=== PATIENT | male | born 1990 | race American Indian/Alaskan Native ===

== ENCOUNTER 2019-09-16 01:31 | Emergency (ER) | payer MEDICAID ==
[2019-09-16 02:02] VITALS: BP 128/79
--- NOTE | 2019-09-16 02:31 | Emergency Department Report ---
ED General Adult HPI - General Chief complaint: Dental/Oral Stated complaint: LIP PAIN Source: patient Mode of arrival: Ambulatory Limitations: No Limitations - History of Present Illness Initial comments: Patient is a 29-year-old -[place] male with no past medical history who presents to the ED with complaint of acute onset persistent painful ulcerated lower lip vesicular lesions for the last 1 week with swelling. Patient states that he try to apply peroxide on it and it got worse. Patient states that the lesions are spreading currently on his lower leg. Patient denies dizziness, fever, chills, nausea, vomiting, sore throat, dysphagia, cough, nasal and sinus congestion, chest pain, abdominal pain, headache or dizziness MD Complaint: lower lip ulcerated lesions with pain -: Sudden, week(s) (1) Location: mouth (lower lip) Radiation: non-radiation Severity scale (0 -10): 4 Quality: burning, aching, sharp Consistency: constant Improves with: none Worsens with: none Associated Symptoms: denies other symptoms, rash (ulcerated vesicular lesions on lower lip with swelling and pain). denies: confusion, chest pain, cough, diaphoresis, fever/chills, headaches, loss of appetite, malaise, nausea/vomiting, seizure Treatments Prior to Arrival: none - Related Data Previous Rx's Medication Instructions Recorded Last Taken Type Acyclovir 400 mg PO Q8H #30 tablet 09/16/19 Unknown Rx Acyclovir [Acyclovir Ointment] 1 applic TP Q6H #1 tube 09/16/19 Unknown Rx Ibuprofen [Motrin 600 MG tab] 600 mg PO Q8H PRN #24 tablet 09/16/19 Unknown Rx cephALEXin [Keflex] 500 mg PO Q8HR #30 cap 09/16/19 Unknown Rx Allergies Allergy/AdvReac Type Severity Reaction Status Date / Time iodine Allergy Swelling Verified 04/23/16 18:51 ED Review of Systems ROS: Stated complaint: LIP PAIN Other details as noted in HPI Constitutional: denies: chills, fever Eyes: denies: eye pain, eye discharge, vision change ENT: other (Lower lip ulcerated lesions). denies: ear pain, throat pain Respiratory: denies: cough, shortness of breath, wheezing Cardiovascular: denies: chest pain, palpitations Endocrine: no symptoms reported Gastrointestinal: denies: abdominal pain, nausea, diarrhea Genitourinary: denies: urgency, dysuria Musculoskeletal: denies: back pain, joint swelling, arthralgia Skin: lesions (lower lip ulcerated lesions with swelling). denies: rash Neurological: denies: headache, weakness, paresthesias Psychiatric: denies: anxiety, depression Hematological/Lymphatic: denies: easy bleeding, easy bruising ED Past Medical Hx - Past Medical History Previous Medical History?: No - Surgical History Past Surgical History?: No - Social History Smoking Status: Current Every Day Smoker Substance Use Type: Marijuana - Medications Home Medications: Home Medications Medication Instructions Recorded Confirmed Last Taken Type Acyclovir 400 mg PO Q8H #30 tablet 09/16/19 Unknown Rx Acyclovir [Acyclovir Ointment] 1 applic TP Q6H #1 tube 09/16/19 Unknown Rx Ibuprofen [Motrin 600 MG tab] 600 mg PO Q8H PRN #24 tablet 09/16/19 Unknown Rx cephALEXin [Keflex] 500 mg PO Q8HR #30 cap 09/16/19 Unknown Rx ED Physical Exam - General Limitations: No Limitations General appearance: alert, in no apparent distress - Head Head exam: Present: atraumatic, normocephalic, normal inspection - Eye Eye exam: Present: normal appearance, PERRL, EOMI Pupils: Present: normal accommodation - ENT ENT exam: Present: mucous membranes moist, other (Ulcerated tender vesicular maculopapular lesions on lower lips) - Neck Neck exam: Present: normal inspection, full ROM. Absent: tenderness - Respiratory Respiratory exam: Present: normal lung sounds bilaterally. Absent: respiratory distress, wheezes, rales, rhonchi, chest wall tenderness, decreased breath sounds, prolonged expiratory - Cardiovascular Cardiovascular Exam: Present: regular rate, normal rhythm, normal heart sounds. Absent: systolic murmur, diastolic murmur, rubs, gallop - GI/Abdominal GI/Abdominal exam: Present: soft, normal bowel sounds. Absent: tenderness, guarding, rebound, hyperactive bowel sounds, hypoactive bowel sounds, organomegaly - Extremities Exam Extremities exam: Present: normal inspection, full ROM, normal capillary refill - Back Exam Back exam: Present: normal inspection, full ROM. Absent: tenderness, CVA tenderness (R), CVA tenderness (L), muscle spasm, paraspinal tenderness, rash noted - Neurological Exam Neurological exam: Present: alert, oriented X3, CN II-XII intact, normal gait, reflexes normal - Psychiatric Psychiatric exam: Present: normal affect, normal mood - Skin Skin exam: Present: warm, dry, intact, normal color, rash (Ulcerated vesicular erythematous tender lesions on lower lip), erythema, vesicles ED Course Vital Signs 09/16/19 09/16/19 01:34 02:49 Temperature 98.6 F 98 F Pulse Rate 118 H 84 Respiratory 20 16 Rate Blood Pressure 128/79 O2 Sat by Pulse 98 100 Oximetry ED Medical Decision Making - Medical Decision Making This is a 29-year-old male who presented to the ED with painful swollen erythematous maculopapular vesicular lesion in the lower lip for 1 week. In the ED, patient is alert and oriented x3 and is not in distress but tachycardic in triage. Patient was treated for pain in the ED and discharged home on medications including antiviral and antibiotics as well as pain medication. Patient was advised to follow-up with his primary care physician in 7 to 10 days for reevaluation or return to the ED immediately if symptoms get worse. - Differential Diagnosis Oral herpes; Lower lip cellulitis; Folliculitis Critical care attestation.: If time is entered above; I have spent that time in minutes in the direct care of this critically ill patient, excluding procedure time. ED Disposition Clinical Impression: Primary herpes simplex infection of oral region, Cellulitis of skin of lip Disposition: DC-01 TO HOME OR SELFCARE Is pt being admited?: No Does the pt Need Aspirin: No Condition: Stable Instructions: Cellulitis (ED), Oral Herpes Simplex Virus Infections (ED) Additional Instructions: Take medication with food, drink plenty of fluids and follow-up with your primary care physician in 7 to 10 days for reevaluation. Avoid alcohol consumption while taking these medications. Return to the ED immediately if symptoms get worse. Prescriptions: Acyclovir 400 mg PO Q8H #30 tablet Acyclovir [Acyclovir Ointment] 1 applic TP Q6H #1 tube cephALEXin [Keflex] 500 mg PO Q8HR #30 cap Ibuprofen [Motrin 600 MG tab] 600 mg PO Q8H PRN #24 tablet PRN Reason: Pain Referrals: [facility] [Provider Group] - 7-10 days Time of Disposition: 02:32 Print Language: TAIWANESE
== END 2019-09-16 02:50 | disposition home or self-care (01) ==
LOC: ED 01:31
DX: B00.1 Herpesviral vesicular dermatitis (principal); K13.0 Diseases of lips; F17.200 Nicotine dependence, unspecified, uncomplicated; F12.10 Cannabis abuse, uncomplicated
CPT/HCPCS: 99282

== ENCOUNTER 2019-10-07 05:21 | Emergency (ER) | payer MEDICAID ==
[2019-10-07 05:27] VITALS: BP 140/89
--- NOTE | 2019-10-07 05:50 | Emergency Department Report ---
Chief Complaint: Wound/Laceration Stated Complaint: LESION ON BOTTOM LIP Time Seen by Provider: 10/07/19 05:48 - HPI History of Present Illness: Patient is a 29-year-old male who presents emergency room with complaints of a shallow ulceration to the lower lip that began a month ago. He states initially it started as a vesicle and he popped it which then created an ulceration to form. Patient was evaluated in the emergency department on 09/16/2019 and given prescription for acyclovir, ibuprofen, Keflex. Patient states that he took all of the medications. He denies any other symptoms. He did not follow-up with a primary care doctor or the health department. He states he has discomfort to the lower lip. VSS On exam: 2 cm shallow ulceration present to the lower lip, no drainage, no necrosis, no skin denuding, no blistering If the cause was herpes, the acyclovir should have cleared up the lower lip Patient needs to have a full STD panel performed by the health department or another clinic Patient is presenting with nonmedical emergency at this time Medical screening examination performed and there is no threat to life or limb at this time - Exam Vital Signs: Vital Signs 10/07/19 05:25 Temperature 98.4 F Pulse Rate 74 Respiratory 18 Rate Blood Pressure 140/89 O2 Sat by Pulse 100 Oximetry MSE screening note: Focused history and physical exam performed ED Disposition for MSE Clinical Impression: Lip ulceration Disposition: - MED SCREENING EXAM-LEFT Is pt being admited?: No Does the pt Need Aspirin: No Condition: Stable Additional Instructions: Please follow-up with the health department and a primary care doctor. You need to have a full STD panel performed. You need to be checked for chancroid and syphilis and treated if positive. Return to the emergency room for any new or worsening symptoms. Referrals: [facility] [Outside] - 2-3 Days MERCEDES MENDOZA MD [Staff Physician] - 2-[address] [facility] [Provider Group] - 2-3 Days [facility] [Outside] - 2-3 Days Time of Disposition: 05:49 Print Language: YAKUT
== END 2019-10-07 05:55 | disposition left against medical advice (07) ==
LOC: ED 05:21
DX: K13.0 Diseases of lips (principal)
CPT/HCPCS: 99282